=== PATIENT | female | born 1975 | race Two or more races ===

== ENCOUNTER 2018-11-09 13:04 | Emergency (ER) | payer MEDICAID ==
[~2018-11-09] VITALS: Ht 162.6 cm; Wt 68.0 kg
--- NOTE | 2018-11-09 13:29 | NUR ---
[facility] FOR REQUESTING MED REFILL FOR PSYCH MEDICATION. NO PMD PT WAITING FOR MD EVALUATION PT DENIES SI OR HI AT THIS TIME
--- NOTE | 2018-11-09 13:51 | NUR ---
VAN received a call from Domenico in ED requesting mental health resources for the pt. Pt. is a 43 year old female who came to [facility] ED for her psychotropic medication refill. SW met with pt. bedside Pt. is alert and oriented x 4. Pt. was pleasant. VAN gave pt. the following mental health referrals: Mental Health clinics [facility] [address] [place] [address] Main Number: [facility] ([facility]): Contact [facility] [address] [place] [address] HOURS: Mon-Mon 8am--7pm Saturdays 9am--5:30pm Closed on Sundays [facility] [place] [address] Operation Hours: MON - FRI 8:00 a.m. - 5:00 p.m. Walk In Hours: MON - FRI 8:00 a.m. - 5:00 p.m. Services by Age: Adults and Older Adults Mental Health Services: [facility] No other social service needs are requested at this time. SW is available, if needed.
[2018-11-09] MEDS ORDERED: LORAZEPAM 1 MG TABLET ONE (14:12)
--- NOTE | 2018-11-09 14:21 | NUR ---
PT DISCHARGED TO HOME GIVEN ACI AND PRESCRIPTIONS.
[2018-11-09 14:28] VITALS: BP 145/99
[2018-11-09] MEDS ORDERED: LORAZEPAM 1 MG TABLET PO ONE (14:30)
== END 2018-11-09 14:31 | disposition home or self-care (01) ==
LOC: ER 13:06
DX: Z76.0 Encounter for issue of repeat prescription (principal); F29 Unspecified psychosis not due to a substance or known physiological condition; I10 Essential (primary) hypertension; F31.9 Bipolar disorder, unspecified; F20.9 Schizophrenia, unspecified; F41.0 Panic disorder [episodic paroxysmal anxiety]; Z59.0 Homelessness; Z88.8 Allergy status to other drugs, medicaments and biological substances

== ENCOUNTER 2018-11-09 22:36 | Emergency (ER) | payer MEDICAID ==
[~2018-11-09] VITALS: Ht 165.1 cm; Wt 70.3 kg
--- NOTE | 2018-11-09 22:40 | NUR ---
PT TO ER C/O DIZZINESS S/P DRINKING WHISKEY. NO IMMEDIATE SIGNS OF DISTRESS NOTED. PT A/OX4. PT AMBULATORY WITH STEADY GAIT. PT TO ER BED . PT WAITING TO BE SEEN BY .
--- NOTE | 2018-11-10 00:12 | NUR ---
PT SLEEPING IN [facility]. NO SIGNS OF DISTRESS NOTED. WILL CONT TO MONITOR PT.
[2018-11-10 00:19] LABS: BASOPHILS # (AUTO) 0.1 /CMM (0.0-0.2); BASOPHILS % (AUTO) 0.8 % (0.0-2.0); EOSINOPHILS % (AUTO) 6.1 % (0.0-6.0); HEMATOCRIT 38 % (33-45); HEMOGLOBIN 12.5 g/dL (11.5-14.8); LYMPHOCYTES # (AUTO) 2.8 /CMM (0.8-4.8); LYMPHOCYTES % (AUTO) 26.7 % (20.0-44.0); MEAN CORPUSCULAR HGB CONC 33 g/dl (31.0-36.0); MEAN CORPUSCULAR VOLUME 93 fL (82-100); MONOCYTES # (AUTO) 0.9 /CMM (0.1-1.30); MONOCYTES % (AUTO) 8.1 % (2.0-12.0); NEUTROPHILS # (AUTO) 6.2 /CMM (1.8-8.9); NEUTROPHILS % (AUTO) 58.3 % (43.0-81.0); PLATELET COUNT (AUTO) 274 /CMM (150-450); RED BLOOD CELL COUNT(AUTO) 4.03 MIL/uL (4.0-5.2); WHITE BLOOD COUNT (AUTO) 10.6 K/uL (4.3-11.0)
[2018-11-10 00:34] LABS: ALBUMIN 3.7 g/dL (3.4-5.0); BILIRUBIN,DIRECT 0.1 mg/dL (0.0-0.2); BILIRUBIN,TOTAL 0.2 mg/dL (0.2-1.0); CALCIUM, SERUM 8.3 mg/dL (8.5-10.1); CREATININE 0.7 mg/dL (0.6-1.3); POTASSIUM 3.5 mmol/L (3.5-5.1); SALICYLATE 3.3 mg/dL (2.8-20.0); TOTAL PROTEIN, SERUM 7.1 g/dL (6.4-8.2)
--- NOTE | 2018-11-10 06:02 | NUR ---
PT OK TO DISCHARGE PER DR FREEMAN. HOMELESS RESOURCES PROVIDED.
[2018-11-10 06:44] VITALS: BP 125/79
== END 2018-11-10 06:45 | disposition home or self-care (01) ==
LOC: ER 22:39
DX: F10.10 Alcohol abuse, uncomplicated (principal); F31.9 Bipolar disorder, unspecified; F25.9 Schizoaffective disorder, unspecified; I10 Essential (primary) hypertension; Y90.1 Blood alcohol level of 20-39 mg/100 ml; Z88.8 Allergy status to other drugs, medicaments and biological substances
CPT/HCPCS: 36415; 80048-TC; 80076-TC; 82962-TC; 84702-TC; 85025-TC; G0480